=== PATIENT | female | born 1945 | race Caucasian/White ===

== ENCOUNTER 2016-07-06 17:39 | Inpatient (IN) | payer OTHER ==
[~2016-07-06] VITALS: Ht 160 cm; Wt 59.9 kg
[2016-07-06 17:56] VITALS: BP 153/94; PULSE 118; RESP 26; TEMP 99.2; O2SAT 92
[2016-07-06] MEDS ORDERED: IPRATROPIUM/ALBUTEROL SULFATE 3 ML AMPUL.NEB INH ONE (18:15)
[2016-07-06] MEDS ORDERED: methylPREDNISolone SOD SUCC/PF 62.5 MG/ML VIAL IVP ONE (18:15)
[2016-07-06] MEDS ORDERED: ONDANSETRON HCL 4 MG/2 ML VIAL IVP ONE (18:30)
[2016-07-06] MEDS ORDERED: PROCHLORPERAZINE EDISYLATE 10 MG/2 ML VIAL IVP ONE (18:30)
[2016-07-06] MEDS ORDERED: KETOROLAC TROMETHAMINE 30 MG VIAL IVP ONE (18:30)
[2016-07-06 18:36] LABS: HEMOGLOBIN 12.5 g/dL (12.0-16.0); MEAN CORPUSCULAR HEMOGLOBIN 32 pg (27-31); MEAN CORPUSCULAR HGB CONC 35 % (32-36); MEAN CORPUSCULAR VOLUME 91 fL (79.0-98.0); PLATELET COUNT (AUTO) 237 K/uL (130-430); RED BLOOD CELL COUNT(AUTO) 3.95 MIL/uL (4.2-6.2); WHITE BLOOD COUNT (AUTO) 23.8 K/uL (4.8-10.8)
[2016-07-06 18:40] LABS: CALCIUM 9.4 mg/dL (8.4-11.0); CREATININE 0.9 mg/dL (0.55-1.30); POTASSIUM 3.3 mmol/L (3.5-5.1)
[2016-07-06 18:45] LABS: ALBUMIN 3.5 g/dL (3.4-4.8); TOTAL BILIRUBIN 0.7 mg/dL (0.0-1.0); TOTAL PROTEIN, SERUM 8.2 g/dL (6.4-8.3)
[2016-07-06 18:53] LABS: BAND % (MANUAL) 10 % (0-6); BASOPHILS % (MANUAL) 0 % (0-2); EOSINOPHILS % (MANUAL) 0 % (0-7); LYMPHOCYTES % (MANUAL) 5 % (20-46); MONOCYTES % (MANUAL) 4 % (0-11)
[2016-07-06 18:56] LABS: INR 6.2 (0.8-1.2); PROTHROMBIN TIME 71.8 SECS (9.5-12.5)
[2016-07-06] MEDS ORDERED: NACL 0.9% 1,000 ML IV ONE ×2 (19:00→19:45)
[2016-07-06] MEDS ORDERED: PIPERACILLIN/TAZO 3.375 GM in NS 50 ML IV ONE (19:45)
[2016-07-06] MEDS ORDERED: PIPERACILLIN/TAZOBACTAM 3.375 GM/VIAL (ZOSYN) IV ONE (20:04)
[2016-07-06] MEDS ORDERED: CARI350T27 PO (20:09)
[2016-07-06] MEDS ORDERED: DICY20TA55 PO (20:10)
[2016-07-06] MEDS ORDERED: SACC250C3 PO (20:11)
[2016-07-06] MEDS ORDERED: GABA-531 PO (20:12)
[2016-07-06] MEDS ORDERED: LISI-600 PO (20:14)
[2016-07-06] MEDS ORDERED: METO-290 PO (20:14)
[2016-07-06] MEDS ORDERED: HYDR-4100 PO (20:14)
[2016-07-06] MEDS ORDERED: METO25TA6 PO (20:15)
[2016-07-06] MEDS ORDERED: PRO40 PO (20:16)
[2016-07-06] MEDS ORDERED: VANC250C11 PO (20:17)
[2016-07-06] MEDS ORDERED: ROSU40TA PO (20:17)
[2016-07-06] MEDS ORDERED: ONDA4TAB5 PO (20:18)
[2016-07-06] MEDS ORDERED: DESL5TAB29 PO (20:19)
[2016-07-06] MEDS ORDERED: CODE118S2 PO (20:21)
[2016-07-06] MEDS ORDERED: ALBMDI INH (20:23)
[2016-07-06] MEDS ORDERED: HYDROmorphone 1 MG INJ. 1 MG/ML AMPUL IVP ONE (20:45)
[2016-07-06 21:03] VITALS: BP 158/78; PULSE 103; RESP 19; TEMP 97; O2SAT 88
[2016-07-06] MEDS ORDERED: FAMOTIDINE 20 MG TABLET PO ONE (22:45)
[2016-07-06] MEDS ORDERED: GABAPENTIN 300 MG CAPSULE PO ONE (22:45)
[2016-07-06] MEDS ORDERED: LACTOBACILLUS RHAMNOSUS GG 1 CAP CAPSULE PO ONE (22:45)
[2016-07-06] MEDS ORDERED: LevALBUTEROL HCL 1.25 MG/0.5 ML *CONC.* VIAL.NEB (XOPENEX CONC.) INH ONE (23:00)
[2016-07-06] MEDS: TEMAZEPAM 15 MG CAPSULE PO PRN (23:30)
[2016-07-06] MEDS: KCL 20 mEq in D5/0.45NS 1000mL 1,000 ML IV SCH (23:36)
[2016-07-07] VITALS (7 sets, daily range): BP systolic 103–165; BP diastolic 58–79; PULSE 83–113; RESP 16–20; TEMP 96.7–98.9; O2SAT 91–100
[2016-07-07] MEDS ORDERED: PIPERACILLIN/TAZOBACTAM 3.375 GM/VIAL (ZOSYN) IV ONE (00:31)
[2016-07-07] MEDS: PIPERACILLIN/TAZO 3.375 GM in NS 50 ML IV SCH ×2 (02:32→09:04)
[2016-07-07] MEDS: guaiFENesin/D-METHORPHAN HB 118 ML SUGAR FREE PO PRN ×3 (05:59→14:24)
[2016-07-07 06:52] LABS: BASOPHILS % (AUTO) 0.1 % (0.0-2.0); HEMOGLOBIN 11.1 g/dL (12.0-16.0); LYMPHOCYTES # (AUTO) 0.5 K/uL (1.0-5.5); LYMPHOCYTES % (AUTO) 3.5 % (20.5-51.5); MEAN CORPUSCULAR HEMOGLOBIN 32 pg (27-31); MEAN CORPUSCULAR HGB CONC 35 % (32-36); MEAN CORPUSCULAR VOLUME 91 fL (79.0-98.0); MONOCYTES # (AUTO) 0.2 K/uL (0.0-1.0); MONOCYTES % (AUTO) 1.1 % (1.7-9.3); NEUTROPHILS # (AUTO) 14.1 K/uL (1.8-7.7); PLATELET COUNT (AUTO) 190 K/uL (130-430); RED CELL DISTRIBUTION WIDTH 13.9 % (9.0-15.0); WHITE BLOOD COUNT (AUTO) 14.8 K/uL (4.8-10.8)
[2016-07-07 07:27] LABS: NEUTROPHILS % (AUTO) 95.3 % (40.0-70.0)
[2016-07-07 07:31] LABS: CALCIUM 8.3 mg/dL (8.4-11.0); CREATININE 0.83 mg/dL (0.55-1.30)
[2016-07-07] MEDS: LevALBUTEROL HCL 1.25 MG/0.5 ML *CONC.* VIAL.NEB (XOPENEX CONC.) INH SCH ×3 (07:31→19:54)
[2016-07-07 07:45] LABS: POTASSIUM 2.9 mmol/L (3.5-5.1)
[2016-07-07] MEDS: GABAPENTIN 300 MG CAPSULE PO SCH ×3 (09:01→21:13)
[2016-07-07] MEDS: VANCOMYCIN HCL 250 MG CAPSULE PO SCH ×4 (09:02→21:11)
[2016-07-07] MEDS: FAMOTIDINE 20 MG TABLET PO SCH ×2 (09:02→21:11)
[2016-07-07] MEDS: LACTOBACILLUS RHAMNOSUS GG 1 CAP CAPSULE PO SCH ×2 (09:03→21:11)
[2016-07-07] MEDS: CARISOPRODOL 350 MG TABLET PO PRN ×2 (09:03→18:42)
[2016-07-07] MEDS: HYDROcodone/ACETAMIN 10-325 MG TAB PO PRN ×3 (09:04→18:43)
[2016-07-07] MEDS: METOPROLOL TARTRATE 25 MG TABLET PO SCH ×2 (09:31→21:12)
[2016-07-07] MEDS: LISINOPRIL 20 MG TABLET PO SCH (09:31)
[2016-07-07] MEDS ORDERED: POTASSIUM CHLORIDE 40 MEQ in NS 250 ML IV ONE (11:00)
[2016-07-07] MEDS ORDERED: POTASSIUM CHLORIDE 20 MEQ TAB.PRT.SR PO ONE (11:00)
[2016-07-07] MEDS: KCL 20 mEq in D5/0.45NS 1000mL 1,000 ML IV SCH ×2 (14:26→23:10)
[2016-07-07] MEDS: ONDANSETRON HCL 4 MG/2 ML VIAL IVP PRN (15:15)
[2016-07-07 17:30] LABS: CALCIUM 8.7 mg/dL (8.4-11.0); CREATININE 0.98 mg/dL (0.55-1.30); POTASSIUM 4.4 mmol/L (3.5-5.1)
[2016-07-07] MEDS ORDERED: ROSUVASTATIN CALCIUM 5 MG/TAB (CRESTOR) PO SCH (18:00)
[2016-07-07] MEDS: cefTRIAXone 1 GM in D5W 50 ML IV SCH (18:42)
[2016-07-07] MEDS ORDERED: ATORVASTATIN 20 MG TABLET PO ONE (19:30)
[2016-07-07] MEDS: ENOXAPARIN SODIUM 40 MG/0.4 ML SYRINGE SUBCUT SCH (21:14)
[2016-07-07] MEDS: metroNIDAZOLE 250 mg/NS 50 ML IV SCH (21:14)
[2016-07-07] MEDS: TEMAZEPAM 15 MG CAPSULE PO PRN (21:54)
[2016-07-08] VITALS: BP 121/74; PULSE 58; RESP 16; TEMP 98.3; O2SAT 94
[2016-07-08] MEDS: guaiFENesin/D-METHORPHAN HB 118 ML SUGAR FREE PO PRN ×4 (00:02→22:15)
[2016-07-08] MEDS: HYDROcodone/ACETAMIN 10-325 MG TAB PO PRN ×4 (00:08→21:11)
[2016-07-08] MEDS: LevALBUTEROL HCL 1.25 MG/0.5 ML *CONC.* VIAL.NEB (XOPENEX CONC.) INH SCH ×4 (00:25→19:35)
[2016-07-08 04:00] VITALS: BP 144/82; PULSE 93; RESP 16; TEMP 98.8; O2SAT 93
[2016-07-08] MEDS: metroNIDAZOLE 250 mg/NS 50 ML IV SCH ×3 (05:08→21:11)
[2016-07-08] MEDS: KCL 20 mEq in D5/0.45NS 1000mL 1,000 ML IV SCH ×2 (05:10→22:17)
[2016-07-08] MEDS: CARISOPRODOL 350 MG TABLET PO PRN (05:11)
[2016-07-08 07:41] LABS: BASOPHILS % (AUTO) 0.2 % (0.0-2.0); EOSINOPHILS % (AUTO) 0.3 % (0.0-4.0); HEMATOCRIT 29.7 % (36-48); HEMOGLOBIN 10.3 g/dL (12.0-16.0); LYMPHOCYTES # (AUTO) 1.2 K/uL (1.0-5.5); MEAN CORPUSCULAR HEMOGLOBIN 32 pg (27-31); MEAN CORPUSCULAR HGB CONC 35 % (32-36); MEAN CORPUSCULAR VOLUME 92 fL (79.0-98.0); MONOCYTES # (AUTO) 0.6 K/uL (0.0-1.0); MONOCYTES % (AUTO) 5.7 % (1.7-9.3); NEUTROPHILS # (AUTO) 9.3 K/uL (1.8-7.7); NEUTROPHILS % (AUTO) 82.8 % (40.0-70.0); PLATELET COUNT (AUTO) 206 K/uL (130-430); RED BLOOD CELL COUNT(AUTO) 3.24 MIL/uL (4.2-6.2); RED CELL DISTRIBUTION WIDTH 13.9 % (9.0-15.0); WHITE BLOOD COUNT (AUTO) 11.1 K/uL (4.8-10.8)
[2016-07-08 07:50] LABS: CALCIUM 8.4 mg/dL (8.4-11.0); CREATININE 0.75 mg/dL (0.55-1.30); POTASSIUM 3.8 mmol/L (3.5-5.1)
[2016-07-08 07:55] VITALS: BP 125/51; PULSE 96; RESP 22; TEMP 99; O2SAT 92
[2016-07-08] MEDS: ATORVASTATIN 20 MG TABLET PO SCH (08:40)
[2016-07-08] MEDS: LACTOBACILLUS RHAMNOSUS GG 1 CAP CAPSULE PO SCH ×2 (08:40→21:09)
[2016-07-08] MEDS: VANCOMYCIN HCL 250 MG CAPSULE PO SCH ×3 (08:41→17:26)
[2016-07-08] MEDS: GABAPENTIN 300 MG CAPSULE PO SCH ×3 (08:41→21:09)
[2016-07-08] MEDS: METOPROLOL TARTRATE 25 MG TABLET PO SCH ×2 (08:42→21:10)
[2016-07-08] MEDS: LISINOPRIL 20 MG TABLET PO SCH (08:42)
[2016-07-08] MEDS: FAMOTIDINE 20 MG TABLET PO SCH ×2 (08:42→21:11)
[2016-07-08 12:09] VITALS: BP 131/61; PULSE 55; RESP 18; TEMP 97.8; O2SAT 93
[2016-07-08 15:26] VITALS: BP 129/72; PULSE 85; RESP 19; TEMP 97.6; O2SAT 93
[2016-07-08] MEDS: cefTRIAXone 1 GM in D5W 50 ML IV SCH (17:27)
[2016-07-08 19:40] VITALS: BP 149/87; PULSE 100; RESP 20; TEMP 97.4; O2SAT 94
[2016-07-08] MEDS: ENOXAPARIN SODIUM 40 MG/0.4 ML SYRINGE SUBCUT SCH (21:09)
[2016-07-08] MEDS: TEMAZEPAM 15 MG CAPSULE PO PRN (22:01)
[2016-07-09 00:01] VITALS: BP 134/67; PULSE 76; RESP 16; TEMP 98.2; O2SAT 93
[2016-07-09] MEDS: LevALBUTEROL HCL 1.25 MG/0.5 ML *CONC.* VIAL.NEB (XOPENEX CONC.) INH SCH ×3 (01:08→13:26)
[2016-07-09 04:14] VITALS: BP 132/60; PULSE 83; RESP 16; TEMP 97.1; O2SAT 94
[2016-07-09] MEDS: ONDANSETRON HCL 4 MG/2 ML VIAL IVP PRN ×2 (04:59→17:21)
[2016-07-09] MEDS: HYDROcodone/ACETAMIN 10-325 MG TAB PO PRN ×2 (05:00→11:39)
[2016-07-09] MEDS: CARISOPRODOL 350 MG TABLET PO PRN (05:00)
[2016-07-09] MEDS: guaiFENesin/D-METHORPHAN HB 118 ML SUGAR FREE PO PRN (05:01)
[2016-07-09] MEDS: metroNIDAZOLE 250 mg/NS 50 ML IV SCH ×2 (05:20→15:44)
[2016-07-09] MEDS: GABAPENTIN 300 MG CAPSULE PO SCH ×2 (08:23→15:44)
[2016-07-09] MEDS: ATORVASTATIN 20 MG TABLET PO SCH (08:23)
[2016-07-09] MEDS: METOPROLOL TARTRATE 25 MG TABLET PO SCH (08:24)
[2016-07-09] MEDS: FAMOTIDINE 20 MG TABLET PO SCH (08:24)
[2016-07-09] MEDS: LISINOPRIL 20 MG TABLET PO SCH (08:25)
[2016-07-09] MEDS: LACTOBACILLUS RHAMNOSUS GG 1 CAP CAPSULE PO SCH (08:25)
[2016-07-09] MEDS: KCL 20 mEq in D5/0.45NS 1000mL 1,000 ML IV SCH (08:25)
[2016-07-09 10:45] VITALS: BP 119/63; PULSE 69; RESP 16; TEMP 97.8; O2SAT 94
[2016-07-09 12:00] VITALS: BP 141/90; PULSE 56; RESP 18; TEMP 96.8; O2SAT 96
[2016-07-09 16:34] VITALS: BP 157/89; PULSE 97; RESP 20; TEMP 98.5; O2SAT 97
[2016-07-09] MEDS: cefTRIAXone 1 GM in D5W 50 ML IV SCH (17:21)
[2016-07-09 17:41] VITALS: BP 115/75; PULSE 92; RESP 16; TEMP 97.8; O2SAT 94
[2016-07-09] MEDS ORDERED: DOXYCYCLINE HYCLATE 100 MG in D5W 100 ML IV SCH (21:00)
== END 2016-07-09 18:44 | disposition short-term general hospital (02) | DRG 871 ==
LOC: SED 17:39 → STU 20:24
PROVIDERS: ADMIT Family Medicine; ATTEND Family Medicine
DX: A41.9 Sepsis, unspecified organism (principal); J18.9 Pneumonia, unspecified organism; A04.7 Enterocolitis due to Clostridium difficile; E87.2 Acidosis; I10 Essential (primary) hypertension; J45.909 Unspecified asthma, uncomplicated; M19.90 Unspecified osteoarthritis, unspecified site; Z87.891 Personal history of nicotine dependence; Z88.6 Allergy status to analgesic agent
CPT/HCPCS: 36415; 71010; 80048; 80053; 83605; 83880; 84484; 85007; 85025; 85027; 85610-TC; 85730-TC; 87040-TC; 87081; 87230-TC; 87449; 94640; 94760; 96365; 96375; 99291; J0696; J0780; J1170; J1650; J1885; J2405; J2543; J2930; J3480; J3490; J7030; J7050; J7060

== ENCOUNTER 2016-09-15 18:43 | Inpatient (IN) | payer OTHER, MEDICAID ==
[~2016-09-15] VITALS: Ht 162.6 cm; Wt 62.1 kg
[~2016-09-15 18:43] MED LIST: ALBMDI INH; CARI350T27 PO; CODE118S2 PO; DESL5TAB29 PO; DICY20TA55 PO; GABA-531 PO; HYDR-4100 PO; LISI-600 PO; METO-290 PO; METO25TA6 PO; ONDA4TAB5 PO; PRO40 PO; ROSU40TA PO; SACC250C3 PO; VANC250C11 PO
--- NOTE | 2016-09-15 18:58 | NUR ---
Pt brought from triage area to room 3 for SOB, cough, vomting, and possible left side rib fracture x 2 days Pt is tachypnic, lung sounds are clear, placed on manager monitoring w/ SR noted. Comfort measures provided.
--- NOTE | 2016-09-15 19:19 | NUR ---
Pt presents to ED with c/o Left ribs pain 11/29, worsened with coughing. Pt stated she was coughing so hard, she heard and crack, and was afraid her ribs were cracked. A&Ox4, ambulatory, denies SOB or chestpain, denies N/V/D. Lung sounds present at all field. Will continue to monitor Addendum: 09/15/16 at 1939 by [email or web address] Pt clarified that she has been vomitting since thursday night
[2016-09-15 19:27] LABS: BASOPHILS % (AUTO) 0.3 % (0.0-2.0); EOSINOPHILS % (AUTO) 0.3 % (0.0-4.0); HEMATOCRIT 38.2 % (36-48); HEMOGLOBIN 13.2 g/dL (12.0-16.0); LYMPHOCYTES # (AUTO) 1.6 K/uL (1.0-5.5); LYMPHOCYTES % (AUTO) 15.3 % (20.5-51.5); MEAN CORPUSCULAR HEMOGLOBIN 32 pg (27-31); MEAN CORPUSCULAR HGB CONC 35 % (32-36); MEAN CORPUSCULAR VOLUME 93 fL (79.0-98.0); MONOCYTES # (AUTO) 0.7 K/uL (0.0-1.0); MONOCYTES % (AUTO) 6.8 % (1.7-9.3); NEUTROPHILS # (AUTO) 8.2 K/uL (1.8-7.7); NEUTROPHILS % (AUTO) 77.3 % (40.0-70.0); PLATELET COUNT (AUTO) 325 K/uL (130-430); RED CELL DISTRIBUTION WIDTH 14.9 % (9.0-15.0); WHITE BLOOD COUNT (AUTO) 10.5 K/uL (4.8-10.8)
[2016-09-15 19:42] LABS: CALCIUM 10.2 mg/dL (8.4-11.0); CREATININE 1.08 mg/dL (0.55-1.30); POTASSIUM 3.2 mmol/L (3.5-5.1)
[2016-09-15 19:46] LABS: ALBUMIN 4.7 g/dL (3.4-4.8); TOTAL BILIRUBIN 0.5 mg/dL (0.0-1.0); TOTAL PROTEIN, SERUM 8.5 g/dL (6.4-8.3)
--- NOTE | 2016-09-15 20:15 | NUR ---
MD Beltran at bedside examining pt
[2016-09-15] MEDS ORDERED: KETOROLAC TROMETHAMINE 30 MG VIAL IVP ONE (20:30)
[2016-09-15] MEDS ORDERED: ONDANSETRON HCL 4 MG/2 ML VIAL IVP ONE (20:30)
[2016-09-15] MEDS ORDERED: NACL 0.9% 1,000 ML IV ONE (20:45)
[2016-09-15] MEDS ORDERED: POTASSIUM CHLORIDE 20 MEQ TAB.PRT.SR PO ONE (20:45)
--- NOTE | 2016-09-15 21:14 | NUR ---
pt stated she feels comfortable, nausea subsided.
--- NOTE | 2016-09-15 21:55 | NUR ---
Patient will be admitted to care of . Admitted to med-surg unit. Will go to room 106B. Belongings list completed. Summary report printed. Report given to Mila FERRELL
--- NOTE | 2016-09-15 22:01 | NUR ---
CONSULTATION PAGED REASON FOR CONSULTATION:INTRACTABLE NAUSEA/VOMITING WAS CONSULT CALLED?Y PERSON WHO WAS NOTIFIED:SINDY CONSULTING PHYSICIAN:DEDRA CALL PHARMACY MESSENGER SPECIALTY:GI PHARMACY MESSENGER PHONE NUMBER:[phone]
--- NOTE | 2016-09-15 22:03 | NUR ---
ADMISSION NOTE Received patient from ER via gurney. Patient admitted with diagnosis of intractable nausea and vomiting. Patient is awake, alert, oriented X 4. Patient oriented to hospital room, call light, toileting, pain management and safety-teach back done. Patient informed that will be her nurse and that their room number is 106b. Personal belongings checked and Belongings List documented. Call light within reach.
[2016-09-15 22:05] VITALS: BP 163/91; PULSE 85; RESP 21; TEMP 98.8; O2SAT 97
--- NOTE | 2016-09-15 22:05 | NUR ---
initial nursing notes: Patient is awake. Patient's IV access on the right forearm is patent. Patient is NPO. Patient stated that she is able to ambulate without assist.
[2016-09-15 22:17] VITALS: BP 142/90; PULSE 85; RESP 17; TEMP 99.1; O2SAT 97
--- NOTE | 2016-09-15 22:35 | NUR ---
PAGED: I PAGED DR. GABRIEL EUGENE CLERK ELIDA I SPOKE WITH VINAY EUGENE CALLED BACK @ [phone]
[2016-09-15] MEDS: HYDROmorphone 1 MG INJ. 1 MG/ML AMPUL IVP PRN (23:20)
[2016-09-15] MEDS: D5/0.45 NS 1,000 ML IV SCH (23:27)
[2016-09-15 23:57] VITALS: BP 163/91; PULSE 87; RESP 17; TEMP 97.7; O2SAT 97
--- NOTE | 2016-09-16 00:05 | NUR ---
nursing rounds: Patient stated that the pain medication was effective in relieving her rib pain. Patient denies of having pain at this time.
--- NOTE | 2016-09-16 01:10 | NUR ---
MD ZAMORA CALLED [facility] AT SPOKE WITH DR.AZAB COLEMAN AMANY VENDING SUPERVISOR.
--- NOTE | 2016-09-16 02:00 | NUR ---
nursing rounds: Patient is asleep. Patient has no shortness of breath.
[2016-09-16 04:00] VITALS: BP 149/85; PULSE 79; RESP 17; TEMP 96.9; O2SAT 96
--- NOTE | 2016-09-16 04:00 | NUR ---
nursing rounds: Patient is sleeping in bed. Patient has no respiratory distress.
[2016-09-16] MEDS: ONDANSETRON HCL 4 MG/2 ML VIAL IVP PRN ×3 (04:04→16:28)
--- NOTE | 2016-09-16 06:00 | NUR ---
nursing rounds: Patient calmly resting in bed. Call light within patient's reach.
--- NOTE | 2016-09-16 07:24 | NUR ---
closing nursing notes: Patient is awake, alert and oriented X 4. Patient is in no acute respiratory distress. No episodes of fall and no injuries throughout the warehouse worker 2nd shift. Provided nursing report to incoming morning shift nurse, MARIAELENA Encarnacion, at patient's bedside.
[2016-09-16] MEDS: HYDROmorphone 1 MG INJ. 1 MG/ML AMPUL IVP PRN (07:26)
--- NOTE | 2016-09-16 07:30 | NUR ---
AM ROUNDS: Patient complaining of pain. Will medicate as ordered.
[2016-09-16 08:00] VITALS: BP 144/68; PULSE 76; RESP 18; TEMP 97.3; O2SAT 98
[2016-09-16] MEDS: D5/0.45 NS 1,000 ML IV SCH ×2 (09:19→17:07)
[2016-09-16] MEDS ORDERED: DIATR MEGLU/DIATRIZ SOD 30 ML SOLUTION PO ONE (09:50)
--- NOTE | 2016-09-16 09:57 | NUR ---
OFF FLOOR: Patient to CT.
[2016-09-16 10:03] LABS: BASOPHILS % (AUTO) 0.4 % (0.0-2.0); EOSINOPHILS # (AUTO) 0.1 K/uL (0.0-0.4); EOSINOPHILS % (AUTO) 0.6 % (0.0-4.0); HEMATOCRIT 34.6 % (36-48); HEMOGLOBIN 11.9 g/dL (12.0-16.0); LYMPHOCYTES # (AUTO) 1.9 K/uL (1.0-5.5); LYMPHOCYTES % (AUTO) 20.4 % (20.5-51.5); MEAN CORPUSCULAR HEMOGLOBIN 33 pg (27-31); MEAN CORPUSCULAR HGB CONC 34 % (32-36); MEAN CORPUSCULAR VOLUME 95 fL (79.0-98.0); MONOCYTES % (AUTO) 10.6 % (1.7-9.3); NEUTROPHILS # (AUTO) 6.4 K/uL (1.8-7.7); PLATELET COUNT (AUTO) 275 K/uL (130-430); RED BLOOD CELL COUNT(AUTO) 3.66 MIL/uL (4.2-6.2); WHITE BLOOD COUNT (AUTO) 9.4 K/uL (4.8-10.8)
--- NOTE | 2016-09-16 10:03 | NUR ---
CONSULT SURGICAL ABDOMINAL PAIN DR MAXWELL [phone] S/W DUSTY EXCHANGE @ 0037
[2016-09-16 10:10] LABS: CREATININE 1.09 mg/dL (0.55-1.30); POTASSIUM 3.8 mmol/L (3.5-5.1)
[2016-09-16 10:15] LABS: ALBUMIN 3.9 g/dL (3.4-4.8); TOTAL BILIRUBIN 0.3 mg/dL (0.0-1.0); TOTAL PROTEIN, SERUM 7.2 g/dL (6.4-8.3)
--- NOTE | 2016-09-16 10:21 | NUR ---
PT RETURNED: From CT. No s/s of distress noted. Will continue to monitor.
--- NOTE | 2016-09-16 11:07 | NUR ---
DC PLANNING Received call from Kay Nunn @ [facility], ph [phone], Pt out of network if stable to transfer in network. Informed Dr Rodriguez in nsg station, states not stable to transfer today. Called & left msg w Kay Nunn that per Dr Rodriguez not stable today to f/u tomorrow. Left Dr Rodriguez's office#. Pt is aware & agreeable to transfer when stable if needed.
[2016-09-16 12:00] VITALS: BP 125/78; PULSE 72; RESP 18; TEMP 96.6; O2SAT 96
--- NOTE | 2016-09-16 12:00 | NUR ---
ROUNDS: Patient complaining of pain. Dr. Jennifer chavez.
--- NOTE | 2016-09-16 13:01 | NUR ---
PAGED: Second page to Dr. Rodriguez.
[2016-09-16] MEDS ORDERED: MORPHINE 2 MG/ML INJ. SYRINGE IVP PRN (13:30)
[2016-09-16] MEDS ORDERED: HYDROmorphone 1 MG INJ. 1 MG/ML AMPUL IM PRN (13:45)
[2016-09-16] MEDS ORDERED: HYDROmorphone 1 MG INJ. 1 MG/ML AMPUL IVP PRN (14:00)
[2016-09-16 15:07] VITALS: BP 109/64; PULSE 74; RESP 16; TEMP 97.6; O2SAT 100
--- NOTE | 2016-09-16 16:00 | NUR ---
PATIENT RESTING: Patient resting quietly. No acute distress noted. Vital signs within normal range.
--- NOTE | 2016-09-16 18:05 | NUR ---
CLOSING NOTE: All needs met. Patient to have EGD tomorrow. Will endorse to NOC shift nurse.
--- NOTE | 2016-09-16 19:10 | NUR ---
OPENING NOTES RECEIVED REPORT AT BEDSIDE FROM DAY SHIFT NURSE. PATIENT RESTING IN SEMI-FOWLERS POSITION. NO SIGNS OR SYMPTOMS OD DISTRESS NOTED. IV FLUIDS RUNNING. BED IN LOWEST POSITION, BED ALARM ON, CALL LIGHT WITHIN REACH. WILL CONTINUE TO MONITOR.
[2016-09-16 20:00] VITALS: BP 146/95; PULSE 79; RESP 20; TEMP 98.2; O2SAT 98
--- NOTE | 2016-09-16 20:07 | NUR ---
PAGED DR SERA RIOS PER PATIENT REQUEST FOR INCREASED NAUSEA. SPOKE WITH DR RIOS AND ORDERS WILL BE PLACED FOR PATIENT.
[2016-09-16] MEDS: METOCLOPRAMIDE HCL 10 MG/2 ML VIAL IVP PRN (20:42)
[2016-09-16] MEDS: HYDROmorphone 2 MG/ML VIAL IVP PRN (20:44)
[2016-09-16] MEDS: TEMAZEPAM 15 MG CAPSULE PO PRN (21:22)
--- NOTE | 2016-09-16 21:27 | NUR ---
ROUNDS PATIENT RESTING IN SEMI-COLLAZO'S POSITION. IV FLUIDS RUNNING. PATIENT STATED PAIN AND NAUSEA HAVE IMPROVED SINCE MEDICATION ADMINISTRATION. NO SIGNS OR SYMPTOMS OF ACUTE DISTRESS NOTED. BED IN LOWEST POSITION, BED ALARM ON, CALL LIGHT WITHIN REACH. WILL CONTINUE TO MONITOR.
--- NOTE | 2016-09-16 22:33 | NUR ---
ROUNDS PATIENT SLEEPING COMFORTABLY. RISE AND FALL OF CHEST VISIBLE. NO SIGNS OR SYMPTOMS OF ACUTE DISTRESS NOTED. BED IN LOWEST POSITION, BED ALARM ON, CALL LIGHT WITHIN REACH.
[2016-09-17 00:32] VITALS: BP 125/70; PULSE 70; RESP 20; TEMP 97.9; O2SAT 100
--- NOTE | 2016-09-17 00:58 | NUR ---
ROUNDS PATIENT SLEEPING IN SEMI-COLLAZO'S POSITION. VISIBLE RISE AND FALL OF CHEST. NO SIGNS OR SYMPTOMS OF ACUTE DISTRESS NOTED. FALL PRECAUTIONS IN PLACE, WILL CONTINUE TO MONITOR FREQUENTLY
[2016-09-17] MEDS: METOCLOPRAMIDE HCL 10 MG/2 ML VIAL IVP PRN ×4 (02:43→21:07)
[2016-09-17] MEDS: HYDROmorphone 2 MG/ML VIAL IVP PRN ×7 (02:44→23:44)
--- NOTE | 2016-09-17 02:58 | NUR ---
ROUNDS PATIENT STATED SHE WAS NAUSEAS AND IN PAIN 8/10. PATIENT WAS PROVIDED MEDICATION PER ORDERS. WILL REASSESS SHORTLY. NO ACUTE DISTRESS NOTED AT THIS TIME. FALL PRECAUTIONS IN PLACE. CALL LIGHT WITHIN REACH. WILL CONTINUE TO MONITOR,
[2016-09-17] MEDS: D5/0.45 NS 1,000 ML IV SCH ×3 (03:00→23:46)
[2016-09-17 04:20] VITALS: BP 116/79; PULSE 75; RESP 18; TEMP 98; O2SAT 95
--- NOTE | 2016-09-17 05:00 | NUR ---
ROUNDS PATIENT SLEEPING. VISIBLE RISE AND FALL OF CHEST NOTED. NO SIGNS OR SYMPTOMS OF DISTRESS. FALL PRECAUTIONS IN PLACE, CALL LIGHT WITHIN REACH.
[2016-09-17 07:12] LABS: INR 1.1 (0.8-1.2); PROTHROMBIN TIME 11.6 SECS (9.5-12.5)
--- NOTE | 2016-09-17 07:24 | NUR ---
CLOSING NOTES PATIENT WAS NAUSEAUS AND IN PAIN 8/10. PATIENT WAS PROVIDED MEDICATION ORDERED. IV FLUIDS RUNNING, NO SIGNS OR SYMPTOMS OF ACUTE DISTRESS. PATIENT SITTING UP AND WATCHING TELEVISION. FALL PRECAUTIONS IN PLACE AND CALL LIGHT IN HAND. WILL ENDORSE TO DAYSHIFT NURSE.
[2016-09-17] MEDS ORDERED: MIDAZOLAM HCL 5 MG/5 ML VIAL ONE (07:29)
[2016-09-17] MEDS ORDERED: fentaNYL CITRATE/PF 100 MCG/2 ML AMP ONE (07:29)
--- NOTE | 2016-09-17 07:30 | NUR ---
AM ROUNDS: No s/s of distress noted. Will continue to monitor.
--- NOTE | 2016-09-17 07:39 | NUR ---
Nutrition Update Noel Scale 17 noted. Pt admitted for intractable N/V. Diet: NPO BMI: 23.5 kg/m2 RD to follow per nutrition care standards.
--- NOTE | 2016-09-17 07:48 | NUR ---
OFF FLOOR: To GI lab.
[2016-09-17 07:52] VITALS: BP 132/71; PULSE 86; RESP 17; TEMP 98.2; O2SAT 99
[2016-09-17] MEDS ORDERED: fentaNYL CITRATE/PF 100 MCG/2 ML AMP IVP ONE (08:00)
[2016-09-17] MEDS ORDERED: SIMETHICONE 40 MG/0.6 ML ML ONE (08:01)
[2016-09-17] MEDS ORDERED: MIDAZOLAM HCL 5 MG/5 ML VIAL IVP ONE ×3 (08:02→08:06)
--- NOTE | 2016-09-17 09:17 | NUR ---
RETURNED: Patient returned from GI.
[2016-09-17] MEDS: SUCRALFATE 1 GM TABLET PO SCH ×3 (09:57→21:07)
[2016-09-17] MEDS: PANTOPRAZOLE SODIUM 40 MG TAB PO SCH (09:57)
--- NOTE | 2016-09-17 10:03 | NUR ---
PATIENT RESTING: Patient resting quietly. No acute distress noted. Vital signs within normal range.
[2016-09-17] MEDS: ONDANSETRON HCL 4 MG/2 ML VIAL IVP PRN ×2 (11:24→17:31)
[2016-09-17 11:30] VITALS: BP 124/83; PULSE 94; RESP 16; TEMP 97.7; O2SAT 100
--- NOTE | 2016-09-17 12:17 | NUR ---
PATIENT RESTING: Patient resting quietly. No acute distress noted. Vital signs within normal range.
--- NOTE | 2016-09-17 14:41 | NUR ---
PATIENT RESTING: Patient resting quietly. No acute distress noted. Vital signs within normal range.
[2016-09-17 15:30] VITALS: BP 147/85; PULSE 87; RESP 16; TEMP 97.8; O2SAT 98
--- NOTE | 2016-09-17 16:28 | NUR ---
PATIENT RESTING: Patient resting quietly. No acute distress noted. Vital signs within normal range.
--- NOTE | 2016-09-17 17:33 | NUR ---
PAGED: Dr. Rodriguez paged. Patient states that pain medication regimen is not effective.
[2016-09-17] MEDS ORDERED: HYDROmorphone 1 MG INJ. 1 MG/ML AMPUL IVP PRN (18:00)
--- NOTE | 2016-09-17 18:07 | NUR ---
CLOSING NOTE: All needs met. No change in assessment. Will endorse to NOC shift nurse.
--- NOTE | 2016-09-17 19:40 | NUR ---
INITIAL NOTE PT. RECEIVED AAOX4. NO S/S OF SOB OR DISTRESS NOTED AT THIS TIME. VSS. PT. STATES SHE IS HAVING SOME NAUSEA AND PAIN 7/10 UNDER HER RIBS, WILL MEDICATE THE PT. ORDERED AND ENCOURAGE TO USE RELAXATION AND DEEP BREATHING TECHNIQUES. IV ACCESS NOTED TO RIGHT FOREARM, NO REDNESS OR SWELLING TO THE SITE. IV FLUIDS INFUSING WELL ORDERED. SCDS ON BILATERALLY. PT. ABLE TO USE THE BEDSIDE COMMODE, INSTRUCTED TO CALL FOR ANY ASSISTANCE, VERBALIZES UNDERSTANDING. PLAN OF CARE HAS BEEN DISCUSSED, PT. VERBALIZES UNDERSTANDING. WILL CONTINUE TO MONITOR FOR ANY CHANGES. SAFETY AND FALL PRECAUTIONS IN PLACE. CALL LIGHT IN REACH.
[2016-09-17] MEDS: TEMAZEPAM 15 MG CAPSULE PO PRN (21:13)
--- NOTE | 2016-09-17 22:00 | NUR ---
ROUNDS PT. ASSISTED TO USE BEDSIDE COMMODE, VOIDED FREELY. NO S/S OF SOB OR DISTRESS. PT. GIVEN MEDICATION FOR PAIN AND NAUSEA. WILL REASSESS. ASSISTED BACK TO BED AND IN A COMFORTABLE POSITION. IV FLUIDS INFUSING WELL ORDERED, NO INFILTRATION NOTED. WILL CONTINUE TO MONITOR FOR ANY CHANGES. SAFETY AND FALL PRECAUTIONS IN PLACE. CALL LIGHT IN REACH, BED ALARM ON.
[2016-09-18] VITALS (8 sets, daily range): BP systolic 103–162; BP diastolic 68–111; PULSE 67–99; RESP 16–19; TEMP 96.6–98.6; O2SAT 92–98
--- NOTE | 2016-09-18 00:48 | NUR ---
ROUNDS PT. RESTING IN BED WITH EYES CLOSED. CHEST RISE AND FALL NOTED. NO S/S OF SOB OR DISTRESS. NO SIGNS OF PAIN NOTED AT THIS TIME. IV FLUIDS INFUSING WELL. WILL CONTINUE TO MONITOR FOR ANY CHANGES. SAFETY AND FALL PRECAUTIONS IN PLACE. CALL LIGHT IN REACH, BED ALARM ON.
--- NOTE | 2016-09-18 02:10 | NUR ---
ROUNDS PT. RESTING QUIETLY WITH EYES CLOSED. CHEST RISE AND FALL NOTED. NO S/S OF SOB OR DISTRESS. NO FACIAL GRIMACING INDICATING PAIN. IV FLUIDS INFUSING WELL. WILL CONTINUE TO MONITOR. SAFETY AND FALL PRECAUTIONS IN PLACE, CALL LIGHT IN REACH, ALARM ON.
[2016-09-18] MEDS: ONDANSETRON HCL 4 MG/2 ML VIAL IVP PRN ×2 (03:25→09:19)
[2016-09-18] MEDS: HYDROmorphone 2 MG/ML VIAL IVP PRN ×5 (03:25→21:26)
--- NOTE | 2016-09-18 04:01 | NUR ---
ROUNDS PAIN AND NAUSEA MEDICATION WAS GIVEN PER PT. REQUEST. IV FLUIDS CONTINUE TO INFUSE WELL. WILL CONTINUE TO MONITOR FOR ANY CHANGES. SAFETY AND FALL PRECAUTIONS IN PLACE. CALL LIGHT IN REACH, BED ALARM ON.
[2016-09-18] MEDS: METOCLOPRAMIDE HCL 10 MG/2 ML VIAL IVP PRN ×3 (06:39→20:35)
--- NOTE | 2016-09-18 06:43 | NUR ---
closing notes provided pt. with pain and nausea medication per her request as ordered. no s/s of sob or distress noted at this time. iv fluids continue to infuse well. all necessary needs were met. safety and fall precautions were maintained. will endorse care to am nurse. call light in reach, bed in lowest, locked position with the alarm on.
--- NOTE | 2016-09-18 08:00 | NUR ---
OPENING NOTES, RECEIVED PT IN BED, NO C/O PAIN. NO SOB, PT ANXIOUS RE HAVING NAUSEA AND VOMITING, PT ASSISTED TO BS COMMODE. URINE IS YELLOW AND CLEAR. CALL LIGHT W/IN REACH, BED IN LOW POSITION
--- NOTE | 2016-09-18 08:10 | NUR ---
NPO FOR HIDA SCAN. PT TOLD SHE NEEDS TO BE NPO FOR HIDA SCAN THIS PM. PT VERBALIZED UNDERSTANDING. ALSO TOLD THAT SHE CANNOT HAVE PAIN MEDS FOR THE TEST.
[2016-09-18] MEDS: SUCRALFATE 1 GM TABLET PO SCH ×3 (09:00→20:35)
[2016-09-18] MEDS: PANTOPRAZOLE SODIUM 40 MG TAB PO SCH (09:00)
[2016-09-18] MEDS: D5/0.45 NS 1,000 ML IV SCH (09:28)
--- NOTE | 2016-09-18 10:00 | NUR ---
NOTES, PT IN BED, C/O N/V. PT HAS VERY LITTLE VOMITUS, CLEAR AND MUCOUSY, REMINDED PT THAT WE JUST GIVEN HER ANTI EMETIC AND THE OTHER MED IS NOT YET DUE. TOLD HER THAT WE ARE CALLING THE MD TO CHANGE FREQUENCY OF MEDICATIONS. PT STILL NPO, CALL LIGHT IN REACH. BED IN LOW POSITION. PT MADE AWARE THAT THERE IS POSSIBILITY OF TRANSFERRING HER TO ANOTHER FACILITY DUE INSURANCE ISSUE BUT ONLY AFTER SHE IS STABLE ENOUGH. PT VERBALIZED UNDERSTANDING.
--- NOTE | 2016-09-18 11:39 | NUR ---
DC PLANNING Received call from Kay Nunn @ [facility], ph [phone], if pt going to dc or stable for transfer. Spoke w Dr Rodriguez in [facility] ordered transfer to [facility], Med/surg LOC. Spoke w pt @ bedside & agreeable w transfer. Informed pt's nurse. Called & notified Kay Nunn, [facility] will have Md to & work on transfer. Addendum: 09/18/16 at 1435 by Marianna Lancaster RN Received call from Kay Nunn Md to Md [facility], pt accepted & is working on getting room for transfer. [facility] to place [facility] ambulance on will call w louise #[phone]. Sudhir Navas. Margy pt's nurse Bill. Addendum: 09/18/16 at 1439 by Eloise MINAYA ordered Radiology CD. Called [facility] ambulance [phone] spoke with Sol james BLGwendolyn transport on will call to [facility] [address] [address]. Placed transportation packet with CD in nurses station. Addendum: 09/18/16 at 1632 by Marinana Lancaster RN Received call from Kay Nunn @ [facility] pt going to room 5116, # for report [phone]. Room ready can go anytime. Notified pt's nurse Bill, will activate ambulance from will call once has rechecked pt's vitals.
--- NOTE | 2016-09-18 12:00 | NUR ---
NOTES, PT IN BED, ASSISTED AGAIN TO BS COMMODE, NO C/O PAIN, NO SOB, NO DISTRESS. C/O NAUSEA AND TOLD HER THAT I WILL GET NAUSEA MEDS SOON IT IS DUE. CALL LIGHT IN REACH, BED IN LOW POSITION.
--- NOTE | 2016-09-18 14:00 | NUR ---
NOTES; PT IN BED, NO NAUSEA THIS TIME, ASSISTED TO BS COMMODE. BED IN LOW POSITION , CALL LIGHT IN REACH.
--- NOTE | 2016-09-18 14:10 | NUR ---
Pain Patient back from HIDA scan. Unable to complete due to back pain from laying down. Patient is stable condition, no s/s of distress or sob. Pt C/o of pain 03/01...pain medication administered. Patient tolerating well. Call light in reach, bed in lowest position, and will continue to monitor.
--- NOTE | 2016-09-18 15:46 | NUR ---
OPENING NOTES, RECEIVED PT IN BED, NO C/O PAIN. NO SOB, PT ANXIOUS RE HAVING NAUSEA AND VOMITING, PT ASSISTED TO BS COMMODE. URINE IS YELLOW AND CLEAR. CALL LIGHT W/IN REACH, BED IN LOW POSITION. Addendum: 09/18/16 at 1557 by Kike Quezada RN THIS NOTE IS FOR 0800 OPENING NOTES, PLS DISREGARD FOR THE INDICATED TIME.
--- NOTE | 2016-09-18 16:00 | NUR ---
HTN NOTES PT'S BP 150/111, RECHECKED AT IT WAS 159/115. PAGED MD TO GET ORDER FOR BP MEDS.
[2016-09-18] MEDS ORDERED: cloNIDine HCL 0.1 MG TABLET PO PRN (16:45)
--- NOTE | 2016-09-18 18:05 | NUR ---
D/C Planning [facility] Ambulance set up for warehouse order picker at [phone].
--- NOTE | 2016-09-18 19:03 | NUR ---
CLOSING NOTE: PATIENT IS RESTING COMFORTABLY IN BED. NO S/S OF DISTRESS OR SOB. PATIENT IS ALERT AND ORIENTED, ABLE TO EXPRESS NEEDS, AND ASK FOR ASSISTANCE. PATIENT IS LEAVING AT 9PM, CALLED TO GIVE REPORT, NURSE WAS UNAVAILABLE. WILL ENDORSE DISCHARGE, REPORT, AND CARE TO NIGHT NURSE.
--- NOTE | 2016-09-18 19:40 | NUR ---
INITIAL NOTES: PT IS A/O X4, NOT IN ANY ACUTE DISTRESS;NO C/O PAIN OR NAUSEA AT THIS TIME ; VITALS ARE STABLE ;ASSESSMENT DONE AND DOCUMENTED ; SCD IS ON TO RIOS. LOWER EXTREMITIES ; SAFETY PRECAUTIONS IN PLACE ; CALL ALEXIS IN REACH ;INSTRUCTED PT TO CALL FOR ANY ASSISTANCE ;WILL CONTINUE TO MONITOR .PT WILL BE TRANSFERRING TO [facility] AT 9 PM , WILL CALL AND GIVE REPORT . PAPER WORKS ARE READY . WILL EXPLAIN TO THE PT AND WILL GET SIGNATURE .
--- NOTE | 2016-09-18 19:45 | NUR ---
REPORT GIVEN : CALLED [facility] AND GIVEN REPORT TO KELVIN FERRELL . NO QUESTIONS AT THIS TIME. PT IS COMFORTABLE .
[2016-09-18] MEDS ORDERED: ONDANSETRON HCL 4 MG/2 ML VIAL IVP PRN (20:00)
--- NOTE | 2016-09-18 20:35 | NUR ---
MEDICATION: DUE MED GIVEN ; PT STATED SHE FEELS LIKE SHE IS GOING TO VOMIT .MEDICATED WITH REGLAN PER ORDER .WILL CONTINUE TO MONITOR PT .
--- NOTE | 2016-09-18 21:26 | NUR ---
PAIN: [facility] ARE HERE TO PICKUP THE PT ; REPORT GIVEN TO THE EMT ; PT C/O PAIN AT THIS TIME; MEDICATED WITH DILAUDID 2 MG PER ORDER . PT IS COMFORTABLE .
--- NOTE | 2016-09-18 21:35 | NUR ---
DISCHARGE: PT ALREADY SIGNED TRANSITION OF CARE PAPER ; ALL PAPER WORKS WERE GIVEN TO THE [facility] ; REPORT GIVEN TO THEM TOO; PT IS COMFORTABLE ; PT STATED SHE IS FEELING BETTER ALREADY . VITALS ARE STABLE; NO OTHER COMPLAINTS AT THIS TIME; ID BAND REMOVED AND PROVIDED TEMPORARY ONE ; NAME AND DOUBLE CHECKED WITH PT ; PER PT DAUGHTER TIEN IS AWARE ABOUT PTS TRANSFER TO [facility] . PT IS COMFORTABLE AT THIS TIME; PT WHEELED OUT VIA GURNEY . ALL BELONGINGS ARE WITH [facility] . IV IS INTACT
--- NOTE | 2016-09-18 22:10 | NUR ---
UP DATED: CALLED [facility] TALKED WITH KELVIN , INFORMED HER REGLAN , CARAFATE AND DILAUDID WERE GIVEN HERE WITH THE TIME .ALSO INFORMED HER THAT HOME MEDICATIONS WERE ON HELD HERE , PLS CLARIFY WITH THE DOCTOR . PT GOT CLONIDINE FOR HIGH BP DURING DAY TIME .
== END 2016-09-18 21:35 | disposition short-term general hospital (02) | DRG 392 ==
LOC: SED 18:43 → SMU 21:35
PROVIDERS: ADMIT Internal Medicine Hospice and Palliative Medicine; ATTEND Internal Medicine Hospice and Palliative Medicine
PROC: 0DB68ZX Excision of Stomach, Via Natural or Artificial Opening Endoscopic, Diagnostic (ICD-10-PCS; 2016-09-17)
PROC: 0DB98ZX Excision of Duodenum, Via Natural or Artificial Opening Endoscopic, Diagnostic (ICD-10-PCS; principal; 2016-09-17 08:00)
DX: K29.70 Gastritis, unspecified, without bleeding (principal); E87.6 Hypokalemia; E86.0 Dehydration; I10 Essential (primary) hypertension; K29.80 Duodenitis without bleeding; I25.10 Atherosclerotic heart disease of native coronary artery without angina pectoris; Z90.710 Acquired absence of both cervix and uterus; Z86.19 Personal history of other infectious and parasitic diseases; Z95.1 Presence of aortocoronary bypass graft; Z95.5 Presence of coronary angioplasty implant and graft; Z98.51 Tubal ligation status; Z90.49 Acquired absence of other specified parts of digestive tract; Z88.6 Allergy status to analgesic agent; Z79.899 Other long term (current) drug therapy
CPT/HCPCS: 36415; 43239; 71010; 76700-TC; 78226; 80053; 82550-TC; 83690-TC; 84484; 85025; 85610-TC; 87081; 88305; 88312; 88313; 96361; 96374; 96375; 99285; A9537; J1170; J1885; J2250; J2270; J2405; J2765; J3010; J7030; Q9964

== ENCOUNTER 2016-09-24 05:24 | Inpatient (IN) | payer OTHER, MEDICAID ==
[~2016-09-24] VITALS: Ht 154.9 cm; Wt 54.4 kg
[2016-09-24 05:24] VITALS: BP 185/87; PULSE 87; RESP 20; TEMP 98.1; O2SAT 98
--- NOTE | 2016-09-24 05:24 | NUR ---
Patient to ER bed 2 to gown for evaluation. Side rails up.
--- NOTE | 2016-09-24 05:30 | NUR ---
PT IN BED 2 BROUGHT IN BY ALS , WITH C/O SEVERE NAUSEA AND VOMITING, ALONG WITH CHEST PAIN ,ASA 162 MG PO, ZOFRAN 4 MG PO, GIVEN BY EMT PRIOR TO ARRIVAL. DR JALIL SAUNDERS.
--- NOTE | 2016-09-24 05:52 | NUR ---
ER at bedside examining patient.
--- NOTE | 2016-09-24 05:59 | NUR ---
cxray done at bedside by tech
[2016-09-24] MEDS ORDERED: ASPIRIN 81 MG TAB.CHEW PO ONE (06:00)
[2016-09-24] MEDS ORDERED: ONDANSETRON HCL 4 MG/2 ML VIAL IVP ONE (06:00)
[2016-09-24 07:05] LABS: BASOPHILS % (AUTO) 0.3 % (0.0-2.0); EOSINOPHILS % (AUTO) 0.4 % (0.0-4.0); HEMATOCRIT 37.4 % (36-48); HEMOGLOBIN 12.5 g/dL (12.0-16.0); LYMPHOCYTES # (AUTO) 1.3 K/uL (1.0-5.5); LYMPHOCYTES % (AUTO) 11.7 % (20.5-51.5); MEAN CORPUSCULAR HEMOGLOBIN 31 pg (27-31); MEAN CORPUSCULAR HGB CONC 34 % (32-36); MEAN CORPUSCULAR VOLUME 94 fL (79.0-98.0); MONOCYTES # (AUTO) 0.9 K/uL (0.0-1.0); NEUTROPHILS # (AUTO) 8.5 K/uL (1.8-7.7); NEUTROPHILS % (AUTO) 79.6 % (40.0-70.0); PLATELET COUNT (AUTO) 297 K/uL (130-430); RED BLOOD CELL COUNT(AUTO) 3.99 MIL/uL (4.2-6.2); RED CELL DISTRIBUTION WIDTH 13.7 % (9.0-15.0); WHITE BLOOD COUNT (AUTO) 10.7 K/uL (4.8-10.8)
[2016-09-24 07:18] LABS: CREATININE 0.96 mg/dL (0.55-1.30); POTASSIUM 3.6 mmol/L (3.5-5.1)
[2016-09-24 07:21] LABS: ALBUMIN 3.9 g/dL (3.4-4.8); PHOSPHORUS 2.6 mg/dL (2.7-4.5); TOTAL BILIRUBIN 0.4 mg/dL (0.0-1.0); TOTAL PROTEIN, SERUM 7.9 g/dL (6.4-8.3)
[2016-09-24] MEDS ORDERED: HYDROmorphone 1 MG INJ. 1 MG/ML AMPUL IVP ONE (07:30)
[2016-09-24] MEDS ORDERED: NACL 0.9% 1,000 ML IV ONE (07:30)
--- NOTE | 2016-09-24 07:41 | NUR ---
Patient in stable condition, states does not have any chest pain, pressure or radiating pain of any kind. Denies any nausea/vomiting. States that her left rib area hurts from vomiting so much.
[2016-09-24 07:48] LABS: CKMB RELATIVE INDEX 0.4 (0.0-2.9); CREATINE KINASE MB 1.2 ng/mL (0-3.6)
--- NOTE | 2016-09-24 08:01 | NUR ---
Telemetry strip printed, interpreted as SINUS RHYTHM WITH PVC at 81 bpm, and placed on the chart.
--- NOTE | 2016-09-24 08:40 | NUR ---
Patient will be admitted to tele unit. Will go to room 135 admit room. Summary report printed. Report given to Derrick FERRELL at bedside
--- NOTE | 2016-09-24 08:45 | NUR ---
ADMISSION NOTE Received patient from ER via gurney. Patient admitted with diagnosis of CP r/o ACS. Patient is awake, alert, oriented X 4. Patient oriented to hospital room, call light, toileting, pain management and safety-teach back done. Patient informed that Santiago will be her nurse and that their room number is 123 A. Personal belongings checked and Belongings List documented. Call light within reach.
[2016-09-24 08:51] VITALS: BP 144/99; PULSE 85; RESP 18; TEMP 98; O2SAT 100
--- NOTE | 2016-09-24 09:35 | NUR ---
[facility] WAS CALLED FOR DR PHOENIX ,FOR CHEST PAIN AND SPOKE TO NICKISHR [phone]
[2016-09-24] MEDS: ONDANSETRON HCL 4 MG/2 ML VIAL IVP PRN ×2 (10:47→19:58)
--- NOTE | 2016-09-24 11:00 | NUR ---
PATIENT C/O NAUSEA. 4MG ZOFRAN IVP IS GIVEN. WILL CONTINUE TO MONITOR.
[2016-09-24 11:48] VITALS: BP 138/61; PULSE 75; RESP 18; TEMP 97.8; O2SAT 97
[2016-09-24] MEDS ORDERED: HYDROcodone/ACETAMIN 5-325 MG TAB (NORCO/ VICODIN) PO PRN (12:15)
--- NOTE | 2016-09-24 12:45 | NUR ---
PATIENT C/O LEFT LOWER CHEST PAIN, 11/29. NORCO [address] BATES. WILL BE CARRIED OUT.
--- NOTE | 2016-09-24 14:00 | NUR ---
PATIENT IS AT REST, NO SIGNS OF DISTRESS NOTED AT THIS TIME.
[2016-09-24] MEDS ORDERED: CARISOPRODOL 350 MG TABLET PO PRN (15:15)
[2016-09-24] MEDS ORDERED: ALBUTEROL MDI INHALATION 8 GM INH INH PRN (15:15)
[2016-09-24] MEDS ORDERED: ONDANSETRON 4 MG ODT TAB PO PRN (15:15)
[2016-09-24] MEDS ORDERED: DICYCLOMINE HCL 10 MG CAPSULE PO PRN (15:15)
[2016-09-24] MEDS ORDERED: PROMETHAZINE 6.25 MG/ CODEINE 10 MG/ 5 ML PO PRN (15:15)
[2016-09-24] MEDS ORDERED: ALBUTEROL SULFATE 0.083% 2.5 MG/3 ML VIAL.NEB INH PRN (15:30)
[2016-09-24] MEDS ORDERED: DIATR MEGLU/DIATRIZ SOD 30 ML SOLUTION PO ONE (15:42)
[2016-09-24] MEDS: METOCLOPRAMIDE HCL 10 MG TABLET PO PRN (15:42)
[2016-09-24] MEDS: HYDROcodone/ACETAMIN 10-325 MG TAB PO PRN ×2 (15:43→19:58)
--- NOTE | 2016-09-24 15:45 | NUR ---
PATIENT IS C/O NAUSEA AND PAIN IN THE LEFT LOWER CHEST. REGLAN 10MG PO AND NORCO 10 PO ARE GIVEN, WILL REASSESS.
[2016-09-24 16:30] VITALS: BP 160/78; PULSE 72; RESP 18; TEMP 97.7; O2SAT 96
[2016-09-24] MEDS: VANCOMYCIN HCL 250 MG CAPSULE PO SCH ×2 (17:00→21:00)
[2016-09-24] MEDS: ATORVASTATIN 20 MG TABLET PO SCH (17:26)
[2016-09-24] MEDS ORDERED: ROSUVASTATIN CALCIUM 5 MG/TAB (CRESTOR) PO SCH (18:00)
--- NOTE | 2016-09-24 18:10 | NUR ---
PATIENT TO CT ABDOMEN/PELVIS. CONSENT IS SIGNED. PATIENT IS TRANSPORTED W/O DISTRESS.
[2016-09-24] MEDS ORDERED: IOHEXOL 100 ML IV ONE (18:16)
--- NOTE | 2016-09-24 18:43 | NUR ---
CONSULTATION PAGED REASON FOR CONSULTATION:VOMITING WAS CONSULT CALLED?Y PERSON WHO WAS NOTIFIED:LARRY CONSULTING PHYSICIAN:PUMA CARLSON (SCOTTY MERRITT CAMPAIGN ADVISOR) FURNACE OPERATOR OIL OR GAS SPECIALTY:GI FURNACE OPERATOR OIL OR GAS PHONE NUMBER:[phone]
[2016-09-24 19:10] VITALS: BP 152/85; PULSE 72; RESP 19; TEMP 98.8; O2SAT 98
--- NOTE | 2016-09-24 19:15 | NUR ---
INITIAL NOTES RECVD PT IN BED A/A/OX4. NO C/O PAIN AND NO SOB NOTED. V/S 156/85,98.8,74,19,98% RA. IV NOTED TO L F/A 20 G NO INFILTRATE AND WITH GOOD BLOOD RETURN. ALL EXTREMITIES ARE STRONG. AMBULATE TO B/R WITH ASSIST. BED IN LOW POSITION AND CALL LIGHT WITHIN REACH. WILL CONT TO MONITOR.
[2016-09-24] MEDS: GABAPENTIN 300 MG CAPSULE PO SCH (19:59)
[2016-09-24] MEDS: PANTOPRAZOLE SODIUM 40 MG TAB PO SCH (19:59)
[2016-09-24] MEDS: METOPROLOL TARTRATE 25 MG TABLET PO SCH (20:00)
--- NOTE | 2016-09-24 20:41 | NUR ---
PAGED PAGED DR.KEHTA GORDILLO AT [phone] SPOKE WITH MOISES.
--- NOTE | 2016-09-24 20:45 | NUR ---
PAGED AND SPOKE WITH DR JANA ZAMORA AND SPOKE WITH DR BATES ABOUT PT REQUESTING FOR SLEEPING PILLS FOR INSOMNIA. THE GOOD DOCTOR ORDERED CHERRI FITZGERALD @ . ORDER NOTED AND CARRIED OUT.
[2016-09-24] MEDS ORDERED: ZOLPIDEM TARTRATE 5 MG TABLET PO PRN (21:00)
--- NOTE | 2016-09-24 22:24 | NUR ---
PAGED PAGED DUY SOTO AT [phone] SPOKE WITH PIA.
--- NOTE | 2016-09-24 22:33 | NUR ---
CONSULTATION PAGED REASON FOR CONSULTATION:ABDOMINAL AORTIC ANEURYSM WAS CONSULT CALLED?Y PERSON WHO WAS NOTIFIED:KRIS CONSULTING PHYSICIAN:NIKKI TRACEY PHOTOGRAPHY ASSISTANT SPECIALTY:SURGEON PHOTOGRAPHY ASSISTANT PHONE NUMBER:[phone]
--- NOTE | 2016-09-24 22:35 | NUR ---
CONSULT WITH DR MAXWELL PAGED AND SPOKE WITH DR BATES AND NOTIFIED HIM ABOUT CT OF ABD AND PELVIS RESULT. THE GOOD DOCTOR ORDERED CONSULT FOR DR MAXWELL. ORDER NOTED AND CARRIED OUT
[2016-09-25] VITALS (8 sets, daily range): BP systolic 127–146; BP diastolic 68–74; PULSE 19–96; RESP 12–19; TEMP 97.4–98.7; O2SAT 93–98
--- NOTE | 2016-09-25 00:25 | NUR ---
ROUNDS PT IS COMFORTABLY RESTING @ THIS TIME. NO S/S OF PAIN AND NO SOB NOTED. BED IN LOW POSITION WITH CALL LIGHT WITHIN REACH, WILL CONT TO MONITOR.
--- NOTE | 2016-09-25 04:25 | NUR ---
ASSISTED TO B/R ASSISTED TO B/R WITH AND SAFELY BACK TO BED. NO S/S OF PAIN AND NO SOB NOTED. CALL LIGHT WITHIN REACH, WILL CONT TO MONITOR.
[2016-09-25] MEDS: ONDANSETRON HCL 4 MG/2 ML VIAL IVP PRN ×2 (05:12→12:24)
[2016-09-25] MEDS: HYDROcodone/ACETAMIN 10-325 MG TAB PO PRN ×3 (05:12→15:06)
[2016-09-25 06:25] LABS: BASOPHILS # (AUTO) 0.1 K/uL (0.0-0.2); BASOPHILS % (AUTO) 0.7 % (0.0-2.0); EOSINOPHILS # (AUTO) 0.1 K/uL (0.0-0.4); EOSINOPHILS % (AUTO) 1.2 % (0.0-4.0); HEMATOCRIT 35.6 % (36-48); HEMOGLOBIN 12.5 g/dL (12.0-16.0); LYMPHOCYTES # (AUTO) 2.2 K/uL (1.0-5.5); LYMPHOCYTES % (AUTO) 21.3 % (20.5-51.5); MEAN CORPUSCULAR HEMOGLOBIN 32 pg (27-31); MEAN CORPUSCULAR HGB CONC 35 % (32-36); MEAN CORPUSCULAR VOLUME 90 fL (79.0-98.0); MONOCYTES # (AUTO) 1.1 K/uL (0.0-1.0); MONOCYTES % (AUTO) 11.3 % (1.7-9.3); NEUTROPHILS # (AUTO) 6.6 K/uL (1.8-7.7); NEUTROPHILS % (AUTO) 65.5 % (40.0-70.0); PLATELET COUNT (AUTO) 277 K/uL (130-430); RED BLOOD CELL COUNT(AUTO) 3.95 MIL/uL (4.2-6.2); RED CELL DISTRIBUTION WIDTH 13.8 % (9.0-15.0); WHITE BLOOD COUNT (AUTO) 10.1 K/uL (4.8-10.8)
[2016-09-25 06:48] LABS: ALBUMIN 3.7 g/dL (3.4-4.8); CALCIUM 9.5 mg/dL (8.4-11.0); CREATININE 0.94 mg/dL (0.55-1.30); POTASSIUM 3.1 mmol/L (3.5-5.1); TOTAL BILIRUBIN 0.3 mg/dL (0.0-1.0); TOTAL PROTEIN, SERUM 7.3 g/dL (6.4-8.3)
--- NOTE | 2016-09-25 06:56 | NUR ---
FINAL NOTES PT IS COMFORTABLY RESTING @ THIS TIME. NO S/S OF PAIN. V/S ARE WNL. ALL NEEDS MET AND ANTICIPATED BY NOC NURSES. BED IN LOW POSITION WITH SIDE RAILS UPX 2 FOR SAFETY. CALL LIGHT WITHIN REACH, ENDORSED.
--- NOTE | 2016-09-25 07:52 | NUR ---
Dr. Glenda WANG called and ordered to get consent for possible EGD today.
--- NOTE | 2016-09-25 08:00 | NUR ---
AM Initial notes Pt aaox4 with complaint of mild rib cage pain with breathing. No complaints of chest pain or other discomfort. No sob, difficulty breathing or distress noted. transmission tester in place. Pt is NPO for possible procedure with Dr. Doshi. IV to Left Forearm#20g saline locked patent and flushing. Educated about fall and safety precautions. Pt verbalized understanding. Encouraged to call for assistance. Call light within reach. Will monitor.
[2016-09-25] MEDS: VANCOMYCIN HCL 250 MG CAPSULE PO SCH ×3 (09:00→17:00)
[2016-09-25] MEDS ORDERED: LISINOPRIL 20 MG TABLET PO SCH (09:00)
--- NOTE | 2016-09-25 09:20 | NUR ---
DISCHARGE PLANNING Ordered Radiology CD. Placed transportation packet in nurses station.
--- NOTE | 2016-09-25 09:36 | NUR ---
Discharge Planning Received order to transfer patient to contracted facility. Met with patient at bedside and she understands that she is OON and is agreeable to transfer to contracted hospital. Contacted Kay Obregon CM @ [facility], , and explained that patient is stable for transfer to contracted hospital. Dr Cornelius's ofc # provided for MD to MD report. Kay Obregon was provided with my contact information as well as # to nursing unit. She will contact me once patient is accepted by hospital and bed assignment has been made.
[2016-09-25] MEDS ORDERED: POTASSIUM CHLORIDE 20 MEQ TAB.PRT.SR PO ONE (10:00)
--- NOTE | 2016-09-25 10:00 | NUR ---
Rounds Pt asleep. No signs of facial grimacing for pain or discomfort. No distress noted. Call light within reach. Will monitor.
--- NOTE | 2016-09-25 10:40 | NUR ---
Pain Pt complaints of pain to her left rib cage area under her breast. No sob or distress noted. Will medicate with [place].
[2016-09-25] MEDS: GABAPENTIN 300 MG CAPSULE PO SCH ×2 (10:43→15:04)
[2016-09-25] MEDS: PANTOPRAZOLE SODIUM 40 MG TAB PO SCH (10:44)
[2016-09-25] MEDS: METOPROLOL TARTRATE 25 MG TABLET PO SCH (10:47)
--- NOTE | 2016-09-25 12:00 | NUR ---
Nausea Pt complaints of nausea. Informed RN for medication administration.
--- NOTE | 2016-09-25 12:13 | NUR ---
D/C Tele As per Dr. Cornelius D/C Tele and change status to Med/Surg.
--- NOTE | 2016-09-25 12:30 | NUR ---
Lunch Pt having clear liquid for lunch. Complaints of mild pain at this time. No distress noted. Encouraged to call for assistance. Call light within reach. Will monitor.
--- NOTE | 2016-09-25 12:37 | NUR ---
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 States she will not take it unless it is prescribed by the specialist who did the transplant.
--- NOTE | 2016-09-25 12:37 | NUR ---
Discharge Planning Received call from Dr Cornelius who stated that he spoke with MD at [facility] and decision was made to DC patient home today if diet is tolerated. And have patient f/u w/PCP tomorrow.
--- NOTE | 2016-09-25 14:50 | NUR ---
Pain Pt complaints of left sided below rib cage pain 01/29. Repositioned and kept comfortable. Will medicate with [place].
--- NOTE | 2016-09-25 17:00 | NUR ---
Rounds Pt awake resting in bed. Complaints of mild pain but feels comfortable. No distress noted. Encouraged to call for assistance. Call light within reach. Will monitor.
--- NOTE | 2016-09-25 17:35 | NUR ---
Dr. Glenda WANG inside room assessing patient. Plan of care discussed.
--- NOTE | 2016-09-25 17:45 | NUR ---
Discharge Patient discharged and will be taking a taxi home. Transitional care instructions and handout explained and given. D/C IV saline locked and dressing applied. Vital signs stable. Pt left floor via w/c to lobby. Taxi on its way to pick her up.
--- NOTE | 2016-09-25 17:54 | NUR ---
PAGED DR BATES FOR ORDERS. SPOKE WITH FLEX FROM EXCHANGE
[2016-09-25] MEDS: ATORVASTATIN 20 MG TABLET PO SCH (19:16)
[2016-09-25] MEDS: METOCLOPRAMIDE HCL 10 MG TABLET PO PRN (19:16)
--- NOTE | 2016-09-26 11:56 | NUR ---
Discharge Follow Up Phone Call NUT TIGHTENER phoned patient, . Patient stated she was doing okay. She has called and made her follow up appointment with her PCP for 09/29/16 at 11:30. She phoned her home health agency and they will resume services. Patient did not receive any new prescriptions. Patient stated she has no questions or concerns. No further follow up calls needed.
== END 2016-09-25 19:47 | disposition home or self-care (01) | DRG 690 ==
LOC: SED 05:24 → STU 08:40 → OBSVTOIN 08:41 → STU 09:14
PROVIDERS: ADMIT Family Medicine; ATTEND Family Medicine
DX: N39.0 Urinary tract infection, site not specified (principal); K21.9 Gastro-esophageal reflux disease without esophagitis; R07.89 Other chest pain; I25.10 Atherosclerotic heart disease of native coronary artery without angina pectoris; I10 Essential (primary) hypertension; E78.5 Hyperlipidemia, unspecified; G89.29 Other chronic pain; J44.9 Chronic obstructive pulmonary disease, unspecified; K57.90 Diverticulosis of intestine, part unspecified, without perforation or abscess without bleeding; M81.0 Age-related osteoporosis without current pathological fracture; I71.4 Abdominal aortic aneurysm, without rupture; M54.5 Low back pain; R53.81 Other malaise; Z86.79 Personal history of other diseases of the circulatory system; Z86.19 Personal history of other infectious and parasitic diseases; Z87.440 Personal history of urinary (tract) infections; Z95.1 Presence of aortocoronary bypass graft; Z87.891 Personal history of nicotine dependence; Z88.5 Allergy status to narcotic agent
CPT/HCPCS: 36415; 71010; 80053; 82550-TC; 82553-TC; 83735-TC; 84100-TC; 84484; 85025; 85610-TC; 85730-TC; 87081; 93005; 96361; 96374; 96375; 99285; J1170; J2405; J7030; J8597; Q0162; Q9964; Q9967

== ENCOUNTER 2016-12-10 23:51 | Emergency (ER) | payer OTHER, MEDICAID ==
[~2016-12-10] VITALS: Ht 160 cm; Wt 64.0 kg
[2016-12-10 23:56] VITALS: BP_SYST 140
[2016-12-11] MEDS ORDERED: NACL 0.9% 1,000 ML IV ONE (00:35)
[2016-12-11] MEDS ORDERED: ONDANSETRON HCL 4 MG/2 ML VIAL IVP ONE ×2 (00:45→03:00)
[2016-12-11] MEDS ORDERED: HYDROmorphone 1 MG INJ. 1 MG/ML AMPUL IVP ONE ×2 (00:45→03:00)
[2016-12-11 00:47] LABS: BASOPHILS # (AUTO) 0.1 K/uL (0.0-0.2); BASOPHILS % (AUTO) 0.8 % (0.0-2.0); EOSINOPHILS # (AUTO) 0.1 K/uL (0.0-0.4); EOSINOPHILS % (AUTO) 1.6 % (0.0-4.0); HEMATOCRIT 37.7 % (36-48); HEMOGLOBIN 12.8 g/dL (12.0-16.0); LYMPHOCYTES # (AUTO) 2.1 K/uL (1.0-5.5); LYMPHOCYTES % (AUTO) 29.1 % (20.5-51.5); MEAN CORPUSCULAR HEMOGLOBIN 32 pg (27-31); MEAN CORPUSCULAR HGB CONC 34 % (32-36); MEAN CORPUSCULAR VOLUME 93 fL (79.0-98.0); MONOCYTES # (AUTO) 0.6 K/uL (0.0-1.0); MONOCYTES % (AUTO) 8.7 % (1.7-9.3); NEUTROPHILS # (AUTO) 4.2 K/uL (1.8-7.7); NEUTROPHILS % (AUTO) 59.8 % (40.0-70.0); PLATELET COUNT (AUTO) 340 K/uL (130-430); RED BLOOD CELL COUNT(AUTO) 4.06 MIL/uL (4.2-6.2); WHITE BLOOD COUNT (AUTO) 7.1 K/uL (4.8-10.8)
[2016-12-11 00:56] LABS: CREATININE 1.08 mg/dL (0.55-1.30); POTASSIUM 3.5 mmol/L (3.5-5.1)
[2016-12-11 01:01] LABS: ALBUMIN 4.6 g/dL (3.4-4.8); TOTAL BILIRUBIN 0.4 mg/dL (0.0-1.0); TOTAL PROTEIN, SERUM 8.3 g/dL (6.4-8.3)
[2016-12-11 01:48] LABS: BILIRUBIN,URINE NEGATIVE (NEGATIVE); BLOOD, URINE NEGATIVE (NEGATIVE); CLARITY/URINE CLEAR (CLEAR); COLOR,URINE YELLOW (YELLOW); GLUCOSE,URINE NEGATIVE (NEGATIVE); KETONES,URINE NEGATIVE (NEGATIVE); LEUKOCYTE ESTERASE ,URINE NEGATIVE (NEGATIVE); NITRITE, URINE NEGATIVE (NEGATIVE); PROTEIN URINE NEGATIVE (NEGATIVE); UROBILINOGEN,URINE 0.2 (0.2-1.0)
[2016-12-11 03:49] VITALS: BP_SYST 136
== END 2016-12-11 03:49 | disposition home or self-care (01) ==
LOC: SED 23:51
DX: R10.32 Left lower quadrant pain (principal); R11.2 Nausea with vomiting, unspecified; J45.909 Unspecified asthma, uncomplicated; I10 Essential (primary) hypertension; Z88.5 Allergy status to narcotic agent; Z95.1 Presence of aortocoronary bypass graft; Z90.710 Acquired absence of both cervix and uterus; Z90.89 Acquired absence of other organs
CPT/HCPCS: 36415; 74176; 80053; 81003; 83690; 85025; 85610; 85730; 96361; 96374; 96375; 96376; 99285; J1170; J2405; J7030

== ENCOUNTER 2017-02-25 02:41 | Emergency (ER) | payer OTHER, MEDICAID ==
[~2017-02-25] VITALS: Ht 162.6 cm; Wt 72.6 kg
[2017-02-25 02:47] VITALS: BP_SYST 115
[2017-02-25] MEDS ORDERED: NACL 0.9% 1,000 ML IV ONE (03:19)
[2017-02-25] MEDS ORDERED: ONDANSETRON HCL 4 MG/2 ML VIAL IVP ONE ×2 (03:30→08:00)
[2017-02-25] MEDS ORDERED: DIPHENHYDRAMINE INJ 50 MG/ML VIAL IVP ONE (03:30)
[2017-02-25] MEDS ORDERED: HYDROmorphone 1 MG INJ. 1 MG/ML AMPUL IVP ONE ×2 (03:30→06:15)
[2017-02-25 03:39] LABS: CALCIUM 9.7 mg/dL (8.4-11.0); CREATININE 1.12 mg/dL (0.55-1.30); POTASSIUM 3.7 mmol/L (3.5-5.1)
[2017-02-25 03:46] LABS: ALBUMIN 4.5 g/dL (3.4-4.8); TOTAL BILIRUBIN 0.5 mg/dL (0.0-1.0)
[2017-02-25 03:49] LABS: BASOPHILS % (AUTO) 0.4 % (0.0-2.0); EOSINOPHILS % (AUTO) 0.2 % (0.0-4.0); HEMATOCRIT 39.6 % (36-48); HEMOGLOBIN 12.9 g/dL (12.0-16.0); LYMPHOCYTES # (AUTO) 1.1 K/uL (1.0-5.5); LYMPHOCYTES % (AUTO) 9.4 % (20.5-51.5); MEAN CORPUSCULAR HEMOGLOBIN 31 pg (27-31); MEAN CORPUSCULAR HGB CONC 33 % (32-36); MEAN CORPUSCULAR VOLUME 95 fL (79.0-98.0); MONOCYTES % (AUTO) 8.4 % (1.7-9.3); NEUTROPHILS # (AUTO) 9.5 K/uL (1.8-7.7); NEUTROPHILS % (AUTO) 81.6 % (40.0-70.0); PLATELET COUNT (AUTO) 222 K/uL (130-430); RED BLOOD CELL COUNT(AUTO) 4.17 MIL/uL (4.2-6.2); WHITE BLOOD COUNT (AUTO) 11.6 K/uL (4.8-10.8)
[2017-02-25 05:09] LABS: BILIRUBIN,URINE NEGATIVE (NEGATIVE); BLOOD, URINE 3+ (NEGATIVE); CLARITY/URINE CLOUDY (CLEAR); COLOR,URINE YELLOW (YELLOW); GLUCOSE,URINE NEGATIVE (NEGATIVE); KETONES,URINE NEGATIVE (NEGATIVE); LEUKOCYTE ESTERASE ,URINE TRACE (NEGATIVE); NITRITE, URINE POSITIVE (NEGATIVE); PROTEIN URINE 1+ (NEGATIVE); UROBILINOGEN,URINE 0.2 (0.2-1.0)
[2017-02-25 05:13] LABS: BACTERIA,URINE MANY /HPF (None Seen); MUCUS,URINE None Seen /LPF (None Seen); WBC,URINE 50-80 /HPF (0-3)
[2017-02-25] MEDS ORDERED: cefTRIAXone 1 GM IVPB PREMIX 50 ML IV ONE (06:15)
[2017-02-25 07:21] VITALS: BP_SYST 147
[2017-02-25] MEDS ORDERED: LORazepam 2 MG/ML VIAL (FOR ER USE) IVP ONE (08:30)
[2017-02-25] MEDS ORDERED: METOCLOPRAMIDE HCL 10 MG/2 ML VIAL IVP ONE (10:45)
[2017-02-25] MEDS ORDERED: KETOROLAC TROMETHAMINE 30 MG VIAL IVP ONE (10:45)
== END 2017-02-25 11:57 ==
LOC: SED 02:41
DX: N39.0 Urinary tract infection, site not specified (principal); Z95.1 Presence of aortocoronary bypass graft; Z90.710 Acquired absence of both cervix and uterus
CPT/HCPCS: 36415; 74176; 80053; 81000; 83605; 83690; 85025; 85610; 87040; 87086; 96361; 96365; 96375; 96376; 99285; J0696; J1170; J1200; J1885; J2060; J2405; J2765; J7030; 87186-TC

== ENCOUNTER 2017-08-11 11:29 | Emergency (ER) | payer OTHER ==
[~2017-08-11] VITALS: Ht 160 cm; Wt 68.5 kg
[~2017-08-11 11:29] MED LIST changes: +BACTROBAN TP; +CLOP75TA2 PO; -CODE118S2 PO; +DENO60DI SQ; +DICL100G16 TP; +FLUT16SP16 NS; +GABA-331 PO; -GABA-531 PO; +HYDR60TA PO; +HYT1 GT; -LISI-600 PO; +LISI40TA4 PO; -METO-290 PO; +METO-442 PO; -METO25TA6 PO; -VANC250C11 PO
[2017-08-11 11:34] VITALS: BP_SYST 134
[2017-08-11] MEDS ORDERED: OXYCODONE/ACETAMINOPHEN 5-325 TABLET PO ONE (12:30)
[2017-08-11] MEDS ORDERED: ONDANSETRON 4 MG ODT TAB PO ONE (12:45)
[2017-08-11 14:00] VITALS: BP_SYST 151
== END 2017-08-11 14:00 | disposition home or self-care (01) ==
LOC: SED 11:29
DX: J06.9 Acute upper respiratory infection, unspecified (principal); J45.909 Unspecified asthma, uncomplicated; I10 Essential (primary) hypertension; Z90.89 Acquired absence of other organs; Z90.710 Acquired absence of both cervix and uterus; Z95.1 Presence of aortocoronary bypass graft; Z79.899 Other long term (current) drug therapy
CPT/HCPCS: 36415; 71045; 86710; 99285; Q0162